=== PATIENT | female | born 1995 | race Two or more races ===

== ENCOUNTER 2023-12-19 01:49 | Emergency (ER) | payer BC ==
[~2023-12-19] VITALS: Ht 160 cm; Wt 75.5 kg
[2023-12-19 01:56] VITALS: BP 120/55; PULSE 106; RESP 16; TEMP 98.3
[2023-12-19] MEDS ORDERED: METO25 PO (02:00)
[2023-12-19] MEDS ORDERED: METHI10 PO (02:00)
[2023-12-19] MEDS ORDERED: AMOX1TAB16 PO (03:01)
[2023-12-19] MEDS ORDERED: CIPOTIC AS (03:01)
== END 2023-12-19 03:23 | disposition home or self-care (01) ==
LOC: EMS 01:49
DX: H66.92 Otitis media, unspecified, left ear (principal); H60.92 Unspecified otitis externa, left ear; E05.90 Thyrotoxicosis, unspecified without thyrotoxic crisis or storm
CPT/HCPCS: 99283; Z7502